=== PATIENT | female | born 1985 | race Hispanic/Latino ===

== ENCOUNTER 2017-10-02 23:58 | Emergency (ER) | payer OTHER, SELFPAY ==
[2017-10-03] MEDS ORDERED: Adacel (T-DAP) 0.5 ML VIAL ONE (00:37)
[2017-10-03] MEDS ORDERED: Amoxicillin/Potassium Clav 875 MG TAB ONE (00:37)
== END 2017-10-03 01:18 | disposition home or self-care (01) ==
LOC: MADERS 23:58
DX: S91.351A Open bite, right foot, initial encounter (principal); Z23 Encounter for immunization; W59.11XA Bitten by nonvenomous snake, initial encounter
CPT/HCPCS: 90471; 90715; 99283